=== PATIENT | female | born 1970 | race Caucasian/White ===

== ENCOUNTER 2018-03-25 20:25 | Emergency (ER) | payer OTHER ==
[~2018-03-25] VITALS: Ht 152.4 cm; Wt 83.9 kg
[2018-03-25] MEDS ORDERED: SYNTHROID125 MC1 (20:41)
[2018-03-25] MEDS ORDERED: NORCO 5-325 TA1 EACH PO (21:12)
[2018-03-25 21:44] VITALS: BP 156/79
== END 2018-03-25 21:44 | disposition home or self-care (01) ==
LOC: ER 20:25
DX: S82.831A Other fracture of upper and lower end of right fibula, initial encounter for closed fracture (principal); W10.9XXA Fall (on) (from) unspecified stairs and steps, initial encounter; Y92.89 Other specified places as the place of occurrence of the external cause; Y93.89 Activity, other specified; Y99.8 Other external cause status

== ENCOUNTER 2018-04-05 05:29 | Day surgery (SDC) | payer OTHER ==
[~2018-04-05] VITALS: Ht 152.4 cm; Wt 83.9 kg
--- NOTE | ~2018-04-05 | O ---
[address] [address] OPERATIVE REPORT Name: LOUISA BROWNE Room #: DEP [facility]..#: [id number] Admission: 04/05/18 Attend Phys: Terry Alamo MD Discharge: 04/05/18 Date of : 68 Report #: [id number] THIS REPORT FOR: //name// CC: JESSICA UNGER Terry Alamo Physician staff DATE OF SERVICE: 04/05/2018 SERVICE: Orthopedics. FACILITY: [facility]. SURGEON: Terry Alamo MD BRAKE REPAIRER AIR: Nitza Reed NP INDICATION FOR ASSISTANCE: Assistance with the reduction and stabilization. PREOPERATIVE DIAGNOSES: 1. Unstable right ankle fracture dislocation. 2. Right distal fibula fracture. POSTOPERATIVE DIAGNOSES: 1. Unstable right ankle fracture dislocation. 2. Right distal fibula fracture. PROCEDURE: Open reduction and internal fixation, right distal fibula fracture. COMPLICATIONS: None. DRAINS: None. SPECIMENS: None. ANESTHESIA: General with regional. FINDINGS: 1. Unstable tibiotalar joint. 2. Early fibrous callus had formed due to delayed presentation, was treated with fibrous union take down and anatomic reduction. 3. [place] distal fibula locking plate utilized. HISTORY: The patient is a young lady who sustained a fall resulting in a dislocation of the right ankle, which spontaneously reduced and she presented to the clinic with a distal fibula fracture that was displaced as well as slightly [address] [address] OPERATIVE REPORT Name: LOUISA BROWNE Room #: DEP [facility]#: [id number] Admission: 04/05/18 Attend Phys: Terry Alamo MD Discharge: 04/05/18 Date of : 68 Report #: [id number] laterally subluxated talus. We had discussion about optimal treatment options, risks, benefits, alternatives and indication for surgery were discussed with her in detail. She gave full informed consent. I explained the risk of chronic problems if the ankle healed with the talus in a displaced position. She wished to proceed. Risks include but not limited to pain, bleeding, infection, injuring nerves and blood vessels, persistent pain despite surgical intervention, failure of any repairs, reconstructions, malunion, nonunion, need for further surgery as well as complications related to anesthesia such as stroke, heart attack, pulmonary complications, thromboembolic disease and . Despite these risks, she wished to proceed. PROCEDURE IN DETAIL: After right lower extremity was correctly identified in preoperative holding as the operative extremity, the patient underwent placement of a single shot regional nerve block by anesthesia. She was then taken to the Operating Room where general anesthesia was induced without complication. She was padded appropriately. Prophylactic antibiotics were administered for the appropriate time. Right leg was then prepped and draped in standard sterile fashion. Time-out procedure was performed. Esmarch was utilized. Tourniquet was inflated to 300 mmHg. Standard incision was made to the distal fibula. Dissection was taken down to the fracture, which was visualized. There was some fibrous union that was present, had to be taken down in order to obtain a reduction. The joint was exposed. There was no visible articular cartilage injury. The hematoma and fibrous tissue was taken down at the lateral shoulder and then the ankle and the fracture were copiously irrigated. Provisional reduction maneuver was performed and the fracture was clamped. X-ray was used to confirm appropriate episcopalian of length, alignment and rotation as well as reduction of the talus underneath the tibial plafond. After confirmation, the interfrag screw was placed to provide direct reduction. Because the duration between the injury and surgery, the callus that was performed some of the cortical keys had been rounded by the healing process. So I selected a distal fibular locking plate for added stability. The plate was then placed and fixed proximally and distally and compressed to the bone and then locking screws were placed distally. Cortical fixation was achieved proximally. Final x-rays were taken to confirm appropriate positioning of the plate. I did change the interfrag screw to a 3.5 screw to provide better purchase across the interfrag position. After it was confirmed that the plate could sit around the 3.5 screw head without difficulty. Final x-rays were taken including multiple planes. The wound was copiously irrigated. The deep layer was closed with 2-0 Vicryl suture, skin was closed with 2-0 Vicryl followed by 3-0 nylon. Sterile dressing was applied followed by a short leg well-padded splint. The patient was awakened from anesthesia and [address] [address] OPERATIVE REPORT Name: HOLLIELOUISA ZANE Room #: DEP [facility] Hermelinda.Michelle#: [id number] Admission: 04/05/18 Attend Phys: Terry Alamo MD Discharge: 04/05/18 Date of : 68 Report #: [id number] taken to recovery room in stable condition. There were no complications and all counts were recorded as correct. <ELECTRONICALLY SIGNED> By: Terry Alamo MD 04/05/18 [id number] Terry Alamo MD /nt
[~2018-04-05 05:29] MED LIST: NORCO 5-325 TA1 EACH PO; SYNTHROID125 MC1 PO
[2018-04-05 16:27] VITALS: BP 141/91
[2018-04-05 18:23] VITALS: BP 141/91
== END 2018-04-05 20:10 | disposition home or self-care (01) ==
LOC: OR 05:29 → TBA 05:29 → OR 11:44
DX: S82.831A Other fracture of upper and lower end of right fibula, initial encounter for closed fracture (principal); S93.04XA Dislocation of right ankle joint, initial encounter; F17.210 Nicotine dependence, cigarettes, uncomplicated; E03.9 Hypothyroidism, unspecified; Z79.899 Other long term (current) drug therapy; Z98.890 Other specified postprocedural states; Z98.818 Other dental procedure status; W19.XXXA Unspecified fall, initial encounter; Y93.89 Activity, other specified; Y92.89 Other specified places as the place of occurrence of the external cause; Y99.8 Other external cause status
CPT/HCPCS: 50010; 50101; 55430; 62110; 62900; 64039; 64043; 70005

== ENCOUNTER → 2018-04-27 | Outpatient (CLI) | payer OTHER | LOC: ULTRA 14:44 | DX: M79.89 Other specified soft tissue disorders (principal); Z98.890 Other specified postprocedural states ==